=== PATIENT | male | born 1980 | race Two or more races ===

== ENCOUNTER 2022-12-09 11:38 | Emergency (ER) | payer OTHER ==
[2022-12-09] MEDS ORDERED: Ketorolac 30 MG/ML SDV IVPUSH ONE (12:09)
[2022-12-09 12:34] LABS: CARBON DIOXIDE,CO2 23.7 mmol/L (21.0-32.0); POTASSIUM,K 4.2 mmol/L (3.5-5.1)
[2022-12-09] MEDS ORDERED: Iopamidol 755 MG/ML 500 ML Multipack Bottle IVPUSH ONE (12:59)
[2022-12-09] MEDS ORDERED: Lidocaine 2% Viscous Solution 15 ML UD PO ONE (13:32)
[2022-12-09] MEDS ORDERED: Dexamethasone 10 MG/ML SDV IVPUSH ONE (14:04)
== END 2022-12-09 14:40 | disposition home or self-care (01) ==
LOC: MW.ED 11:38
DX: M54.2 Cervicalgia (principal)
CPT/HCPCS: 36415; 70491; 80048; 85025; 96374; 96375; 99284; A9270; J1100; J1885; Q9967